=== PATIENT | female | born 1935 | race Caucasian/White ===

== ENCOUNTER 2022-11-14 07:08 | Day surgery (SDC) | payer MEDICARE ==
[2022-11-14] MEDS ORDERED: Phenylephrine 2.5% Ophth Soln 5 ML BOT ONE (07:57)
[2022-11-14] MEDS ORDERED: Cyclopentolate 1% Opth Drop 2 ML BOT ONE (07:57)
[2022-11-14] MEDS ORDERED: Fluorouracil 100 MG, Enoxaparin 25 MG, EPINEPHrine 0.3 MG in Ophthalmic Irrigation Solu... IRR SCH (08:00)
[2022-11-14] MEDS ORDERED: Midazolam HCl 2 mg/2 ml Vial ONE (09:17)
[2022-11-14] MEDS ORDERED: PROPOFOL 20 ML ONE (09:17)
[2022-11-14] MEDS ORDERED: fentaNYL PF 100 MCG/2 ML SYRINGE ONE (09:17)
[2022-11-14] MEDS ORDERED: Lidocaine 4% PF 5 ML AMP ONE (09:32)
[2022-11-14] MEDS ORDERED: Bupivacaine 0.75% 10 ML VIAL ONE (09:32)
[2022-11-14] MEDS ORDERED: Maxitrol 0.1% Opth Oint 3.5 GM TUBE ONE (09:32)
[2022-11-14] MEDS ORDERED: Lidocaine 1% PF 5 ML VIAL ONE (09:32)
[2022-11-14] MEDS ORDERED: Triamcinolone 40 MG/ML VIAL ONE (09:32)
[2022-11-14] MEDS ORDERED: CEFAZOLIN 1 GM VIAL ONE (09:32)
== END 2022-11-14 10:57 | disposition home or self-care (01) ==
LOC: SDC 07:08
PROVIDERS: ATTEND Ophthalmology Retina Specialist
PROC: 08T53ZZ Resection of Left Vitreous, Percutaneous Approach (ICD-10-PCS; principal; 2022-11-14)
DX: H33.012 Retinal detachment with single break, left eye (principal); Z98.41 Cataract extraction status, right eye; Z98.42 Cataract extraction status, left eye; Z96.1 Presence of intraocular lens
CPT/HCPCS: 67025; J0171; J0690; J1650; J2250; J2704; J3301; J3490; J9190